=== PATIENT | male | born 1940 | race Caucasian/White ===

== ENCOUNTER → 2024-08-14 09:55 | Outpatient (REF) | payer MEDICARE, OTHER, SELFPAY ==
[2024-08-14 11:10] LABS: % Basophils 1.1 % (0-2); % Eosinophils 7.1 % (0-6); % Immature Granulocytes 0.5 % (0-0.5); % Lymphocytes 19.8 % (20.5-51.1); % Monocytes 12.4 % (1.7-9.3); % Neutrophils 59.1 % (42.2-75.2); Absolute Basophils 0.1 10^3/uL (0-0.2); Absolute Eosinophils 0.4 10^3/uL (0-0.7); Absolute Lymphocytes 1.1 10^3/uL (1.2-3.4); Absolute Monocytes 0.7 10^3/uL (0.1-0.6); Absolute Neutrophils 3.3 10^3/uL (1.4-6.5); Hematocrit 45.4 % (39.0-52.0); Mean Corpuscular Hgb 30.5 pg (27.0-31.0); Mean Corpuscular Volume 92.3 fL (80.0-94.0); Mean Platelet Volume 10.6 fL (7.4-10.4); Nucleated Red Blood Cells % 0 % (-); Platelet Count 261 10^3/uL (130-400); Red Blood Cell Count 4.92 10^6/uL (4.70-6.10); White Blood Cell Count 5.7 10^3/uL (4.8-10.8)
[2024-08-14 12:10] LABS: TSH Reflex To Free T4 2.16 uIU/ml (0.47-4.68)
[2024-08-14 12:23] LABS: ALT (SGPT) 700 U/L (0-50); AST (SGOT) 685 U/L (17-59); Albumin 4.4 g/dl (3.5-5.0); Blood Urea Nitrogen 31 mg/dl (9-20); Calcium 10.6 mg/dl (8.4-10.2); Carbon Dioxide 25 mmol/L (22-30); Chloride 105 mmol/L (98-107); Glucose 184 mg/dl (70-99); HDL Cholesterol 105 mg/dl; LDL Cholesterol, Calculated 55 mg/dl; Potassium 4.8 mmol/L (3.5-5.1); Sodium 139 mmol/L (135-145); Total Bilirubin 0.9 mg/dl (0.2-1.3); Total Cholesterol 185 mg/dl (50-199); Total Protein 6.8 g/dl (6.3-8.2); Triglyceride 125 mg/dl (10-149); Very Low Density Lipoprotein 25 mg/dl (0-30); eGFR 54.85
[2024-08-14 12:32] LABS: Alkaline Phosphatase 1265 U/L (38-126)
[2024-08-14 12:33] LABS: Glycohemoglobin (HgbA1c) 8.6 % (4.0-5.6)
== END ==
LOC: REG 09:55
PROVIDERS: ATTENDING PHYSICIAN Internal Medicine
DX: Z00.00 Encounter for general adult medical examination without abnormal findings (principal); I10 Essential (primary) hypertension; Z23 Encounter for immunization; E11.21 Type 2 diabetes mellitus with diabetic nephropathy
CPT/HCPCS: 36415; 80053; 80061; 83036; 84443; 85025

== ENCOUNTER → 2024-08-15 09:47 | Outpatient (REF) | payer MEDICARE, OTHER, SELFPAY | LOC: HWRAD 09:47 | PROVIDERS: ATTENDING PHYSICIAN Internal Medicine | DX: R94.5 Abnormal results of liver function studies (principal) | CPT/HCPCS: 76700 ==

== ENCOUNTER → 2024-08-17 10:36 | Outpatient (REF) | payer MEDICARE, OTHER, SELFPAY ==
[2024-08-17 12:02] LABS: ALT (SGPT) 789 U/L (0-50); AST (SGOT) 658 U/L (17-59); Albumin 4.8 g/dl (3.5-5.0); Alkaline Phosphatase 1276 U/L (38-126); Direct Bilirubin 0.4 mg/dl (0.0-0.4); Total Protein 7.5 g/dl (6.3-8.2)
[2024-08-17 16:48] LABS: Hepatitis B Surface Antigen Negative (Negative)
[2024-08-17 17:06] LABS: Hepatitis A Antibody, Total Negative (Negative); Hepatitis B Core Ab, Total Negative (Negative); Hepatitis B Surface Antibody Negative; Hepatitis C Antibody Negative (Negative)
[2024-08-18 23:31] LABS: Alpha-1-Antitrypsin 158 mg/dL (90-200)
[2024-08-19 02:59] LABS: Ceruloplasmin 34 mg/dL (15-30)
== END ==
LOC: REG 10:36
PROVIDERS: ATTENDING PHYSICIAN Internal Medicine
DX: E11.21 Type 2 diabetes mellitus with diabetic nephropathy (principal); N18.32 Chronic kidney disease, stage 3b; K75.9 Inflammatory liver disease, unspecified
CPT/HCPCS: 36415; 80076; 82103; 82390; 82728; 86256; 86704; 86706; 86708; 86803; 87340

== ENCOUNTER → 2024-08-24 08:41 | Outpatient (REF) | payer MEDICARE, OTHER, SELFPAY ==
[2024-08-24 10:16] LABS: ALT (SGPT) 384 U/L (0-50); AST (SGOT) 210 U/L (17-59); Albumin 4.2 g/dl (3.5-5.0); Alkaline Phosphatase 885 U/L (38-126); Direct Bilirubin 0.2 mg/dl (0.0-0.4); Total Bilirubin 0.5 mg/dl (0.2-1.3); Total Protein 6.6 g/dl (6.3-8.2)
== END ==
LOC: REG 08:41
PROVIDERS: ATTENDING PHYSICIAN Internal Medicine
DX: R79.89 Other specified abnormal findings of blood chemistry (principal)
CPT/HCPCS: 36415; 80076

== ENCOUNTER → 2024-09-07 09:03 | Outpatient (REF) | payer MEDICARE, OTHER, SELFPAY ==
[2024-09-07 11:08] LABS: ALT (SGPT) 68 U/L (0-50); AST (SGOT) 35 U/L (17-59); Albumin 4.4 g/dl (3.5-5.0); Alkaline Phosphatase 350 U/L (38-126); Direct Bilirubin 0.1 mg/dl (0.0-0.4); Total Bilirubin 0.7 mg/dl (0.2-1.3); Total Protein 6.9 g/dl (6.3-8.2)
== END ==
LOC: REG 09:03
PROVIDERS: ATTENDING PHYSICIAN Internal Medicine; OTHER PHYSICIAN Internal Medicine Endocrinology, Diabetes & Metabolism; REFERRING PHYSICIAN Internal Medicine Cardiovascular Disease
DX: R79.89 Other specified abnormal findings of blood chemistry (principal)
CPT/HCPCS: 36415; 80076

== ENCOUNTER → 2024-09-19 14:45 | Outpatient (REF) | payer MEDICARE, OTHER, SELFPAY ==
[2024-09-19 16:05] LABS: ALT (SGPT) 117 U/L (0-50); AST (SGOT) 75 U/L (17-59); Albumin 4.5 g/dl (3.5-5.0); Alkaline Phosphatase 293 U/L (38-126); Direct Bilirubin 0.2 mg/dl (0.0-0.4); Total Bilirubin 0.6 mg/dl (0.2-1.3); Total Protein 6.9 g/dl (6.3-8.2)
== END ==
LOC: REG 14:45
PROVIDERS: ATTENDING PHYSICIAN Internal Medicine; REFERRING PHYSICIAN Internal Medicine Endocrinology, Diabetes & Metabolism
DX: R79.89 Other specified abnormal findings of blood chemistry (principal)
CPT/HCPCS: 36415; 80076

== ENCOUNTER → 2024-10-09 10:55 | Outpatient (REF) | payer MEDICARE, OTHER, SELFPAY ==
[2024-10-09 12:27] LABS: ALT (SGPT) 106 U/L (0-50); AST (SGOT) 66 U/L (17-59); Albumin 4.7 g/dl (3.5-5.0); Alkaline Phosphatase 253 U/L (38-126); Direct Bilirubin 0.4 mg/dl (0.0-0.4); Total Bilirubin 0.9 mg/dl (0.2-1.3); Total Protein 6.9 g/dl (6.3-8.2)
== END ==
LOC: REG 10:55
PROVIDERS: ATTENDING PHYSICIAN Internal Medicine
DX: R79.89 Other specified abnormal findings of blood chemistry (principal)
CPT/HCPCS: 36415; 80076

== ENCOUNTER → 2024-12-08 17:33 | Outpatient (REF) | payer MEDICARE, OTHER, SELFPAY | LOC: RAD 17:33 | PROVIDERS: ATTENDING PHYSICIAN Nurse Practitioner Adult Health; OTHER PHYSICIAN Internal Medicine | DX: M25.532 Pain in left wrist (principal) | CPT/HCPCS: 73110 ==

== ENCOUNTER → 2025-02-16 10:59 | Outpatient (REF) | payer MEDICARE, OTHER, SELFPAY ==
[2025-02-16 12:28] LABS: ALT (SGPT) 24 U/L (0-50); AST (SGOT) 24 U/L (17-59); Albumin 4.3 g/dl (3.5-5.0); Alkaline Phosphatase 67 U/L (38-126); Direct Bilirubin 0.2 mg/dl (0.0-0.4); Total Bilirubin 0.6 mg/dl (0.2-1.3); Total Protein 6.5 g/dl (6.3-8.2)
== END ==
LOC: REG 10:59
PROVIDERS: ATTENDING PHYSICIAN Internal Medicine; REFERRING PHYSICIAN Internal Medicine Gastroenterology
DX: R79.89 Other specified abnormal findings of blood chemistry (principal)
CPT/HCPCS: 36415; 80076

== ENCOUNTER → 2025-08-13 14:31 | Outpatient (REF) | payer MEDICARE, OTHER, SELFPAY ==
[2025-08-16 16:44] LABS: Lyme Antibody Screen, EIA Negative (Negative)
== END ==
LOC: REG 14:31
PROVIDERS: ATTENDING PHYSICIAN Nurse Practitioner Primary Care; FAMILY PHYSICIAN Internal Medicine
DX: D89.89 Other specified disorders involving the immune mechanism, not elsewhere classified (principal)
CPT/HCPCS: 36415; 86618